=== PATIENT | male | born 1995 | race Caucasian/White ===

== ENCOUNTER 2018-08-10 03:14 | Emergency (ER) | payer SELFPAY ==
[~2018-08-10] VITALS: Ht 160 cm; Wt 69.9 kg
[2018-08-10 03:18] VITALS: BP 138/77
--- NOTE | 2018-08-10 03:25 | NUR ---
PATIENT AMBULATED TO ER BED 2.
--- NOTE | 2018-08-10 03:30 | NUR ---
PT IS A 23 Y/O MALE WHO PRESENTS TO THE ED C/O RASH. PT STATES THAT RASH STARTED SUDDENLY. PT DENIES PAIN AT THIS TIME. PT DENIES CP, SOB, N/V/D. NOTED RASHES OVER THE BODY. PT DENIES CP, SOB, N/V/D. PT AWAKE AND ALERT, RR EVEN/UNLABORED. PT REPOSITIONED FOR COMFORT, BED IN LOWEST POSITION. ER MD DR. KOVACS NOTIFIED. WILL CONTINUE TO MONITOR.
[2018-08-10] MEDS ORDERED: predniSONE 20 MG TAB PO ONE (03:35)
[2018-08-10 03:52] VITALS: BP 128/85
--- NOTE | 2018-08-10 03:52 | NUR ---
Patient discharged with v/s stable. Written and verbal after care instructions given and explained. Patient alert, oriented and verbalized understanding of instructions. Ambulatory with steady gait. All questions addressed prior to discharge. ID band removed. Patient advised to follow up with PMD. Rx of BENADRYL ALLERGY 25MG AND PREDNISONE 50MG given. Patient educated on indication of medication including possible reaction and side effects. Opportunity to ask questions provided and answered.
== END 2018-08-10 03:52 | disposition home or self-care (01) ==
LOC: MED 03:14
DX: T14.8XXA Other injury of unspecified body region, initial encounter (principal); L50.9 Urticaria, unspecified; I10 Essential (primary) hypertension; W57.XXXA Bitten or stung by nonvenomous insect and other nonvenomous arthropods, initial encounter; Y93.89 Activity, other specified; Y92.89 Other specified places as the place of occurrence of the external cause; Y99.8 Other external cause status
CPT/HCPCS: 99283; J7512

== ENCOUNTER 2019-09-03 04:46 | Emergency (ER) | payer SELFPAY ==
[~2019-09-03] VITALS: Ht 157.5 cm; Wt 61.2 kg
[2019-09-03 04:50] VITALS: BP 133/61
[2019-09-03 04:55] VITALS: BP 133/61
[2019-09-03] MEDS ORDERED: IBUPROFEN 600 MG TAB PO ONE (05:10)
== END 2019-09-03 05:13 | disposition home or self-care (01) ==
LOC: MED 04:46
DX: K08.89 Other specified disorders of teeth and supporting structures (principal)
CPT/HCPCS: 99283

== ENCOUNTER 2024-08-25 10:18 | Emergency (ER) | payer OTHER ==
[~2024-08-25] VITALS: Ht 157.5 cm; Wt 70.5 kg
[2024-08-25 10:23] VITALS: BP 125/79; PULSE 119; RESP 18; TEMP 99.9; O2SAT 99
[2024-08-25] MEDS: LORATADINE 10 MG TAB PO ONE (10:56)
[2024-08-25] MEDS: DEXAMETHASONE 10 MG/ML VIAL IM ONE (10:57)
[2024-08-25] MEDS: FAMOTIDINE 20 MG TAB PO ONE (11:00)
[2024-08-25] MEDS ORDERED: FAMO-92 PO (11:09)
[2024-08-25] MEDS ORDERED: LORA-1047 PO (11:09)
[2024-08-25 11:23] VITALS: BP 125/79; PULSE 119; RESP 18; TEMP 99.9; O2SAT 99
== END 2024-08-25 11:36 | disposition home or self-care (01) ==
LOC: MED 10:18
DX: R21 Rash and other nonspecific skin eruption (principal); L29.9 Pruritus, unspecified; R22.33 Localized swelling, mass and lump, upper limb, bilateral; R22.43 Localized swelling, mass and lump, lower limb, bilateral; Z79.899 Other long term (current) drug therapy
CPT/HCPCS: 96372; 99283; J1100

== ENCOUNTER 2024-08-27 09:14 | Emergency (ER) | payer OTHER ==
[~2024-08-27] VITALS: Ht 160 cm; Wt 70.3 kg
[~2024-08-27 09:14] MED LIST: FAMO-92 PO; LORA-1047 PO
[2024-08-27 09:17] VITALS: BP 118/90; PULSE 113; RESP 20; TEMP 98.4; O2SAT 98
[2024-08-27] MEDS ORDERED: DOCU-299 PO (10:59)
[2024-08-27] MEDS ORDERED: DOXY-22 PO (10:59)
[2024-08-27] MEDS ORDERED: ACYC-276 PO (10:59)
[2024-08-27] MEDS ORDERED: HYDR-2734 TP (10:59)
[2024-08-27] MEDS ORDERED: cefTRIAXone 500 MG VIAL ONE (11:00)
[2024-08-27] MEDS ORDERED: LIDOCAINE MPF 1% 5 ML ONE (11:00)
[2024-08-27] MEDS: cefTRIAXone 500 MG in LIDOCAINE MPF 1% 1 ML IM SCH (11:07)
[2024-08-27 11:43] VITALS: BP 118/90; PULSE 113; RESP 20; O2SAT 98
== END 2024-08-27 11:43 | disposition home or self-care (01) ==
LOC: MED 09:14
DX: B34.9 Viral infection, unspecified (principal); K64.4 Residual hemorrhoidal skin tags; Z11.3 Encounter for screening for infections with a predominantly sexual mode of transmission; R03.0 Elevated blood-pressure reading, without diagnosis of hypertension; Z79.899 Other long term (current) drug therapy
CPT/HCPCS: 86592; 87491; 96372; 99283; J0696; J2003

== ENCOUNTER 2024-08-27 15:27 | Emergency (ER) | payer OTHER ==
[~2024-08-27] VITALS: Ht 160 cm; Wt 70.3 kg
[~2024-08-27 15:27] MED LIST changes: +ACYC-276 PO; +DOCU-299 PO; +DOXY-22 PO; +HYDR-2734 TP
[2024-08-27 16:06] VITALS: BP 126/81; PULSE 81; RESP 16; TEMP 98.2; O2SAT 96
[2024-08-27] MEDS: PENICILLIN G BENZATHINE L-A 1.2 MU/2 ML SYR IM ONE (17:57)
[2024-08-27 18:01] VITALS: BP 126/81; PULSE 81; RESP 16; TEMP 98.2; O2SAT 96
== END 2024-08-27 18:01 | disposition home or self-care (01) ==
LOC: MED 15:27
DX: A53.9 Syphilis, unspecified (principal); Z79.899 Other long term (current) drug therapy
CPT/HCPCS: 96372; 99283; J0561